=== PATIENT | male | born 1985 | race Hispanic/Latino ===

== ENCOUNTER 2022-07-16 11:56 | Emergency (ER) | payer OTHER ==
[2022-07-16] VITALS (10 sets, daily range): BP systolic 105–143; BP diastolic 70–97
[2022-07-16] MEDS ORDERED: CYCLOBENZAPRINE10 MG PO (14:24)
[2022-07-16] MEDS ORDERED: MOTRIN800 MG PO (14:24)
== END 2022-07-16 14:26 | disposition home or self-care (01) | DRG 563 ==
LOC: ED 11:56
DX: S46.912A Strain of unspecified muscle, fascia and tendon at shoulder and upper arm level, left arm, initial encounter (principal); X58.XXXA Exposure to other specified factors, initial encounter; Y93.89 Activity, other specified; Y92.89 Other specified places as the place of occurrence of the external cause; Y99.0 Civilian activity done for income or pay